=== PATIENT | female | born 1975 | race American Indian/Alaskan Native ===

== ENCOUNTER 2017-07-26 19:39 | Emergency (ER) | payer OTHER ==
[2017-07-27 03:57] LABS: Bilirubin,Urine NEG (Negative); Blood,Urine MOD (Negative); Ketones,Urine NEG (Negative); Leukocyte Esterase,Urine SM (Negative); Mucus,Urine 3+ /HPF; Nitrite,Urine NEG (Negative); Protein,Urine <15 mg/dL mg/dL (Negative); Urobilinogen,Urine < 2.0 mg/dL (<2.0)
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
[2017-07-27 06:01] VITALS: BP 111/68
[2017-07-27] MEDS ORDERED: TORADOL IM ONE (07:15)
[2017-07-27] MEDS ORDERED: TYLENOL PO ONE (07:15)
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
[2017-07-27] MEDS ORDERED: TORADOL ONE (07:17)
== END 2017-07-27 07:51 | disposition home or self-care (01) ==
LOC: ED 19:39
DX: S09.90XA Unspecified injury of head, initial encounter (principal); S19.9XXA Unspecified injury of neck, initial encounter; V89.2XXA Person injured in unspecified motor-vehicle accident, traffic, initial encounter; Y93.89 Activity, other specified; Y99.8 Other external cause status; Y92.488 Other paved roadways as the place of occurrence of the external cause
CPT/HCPCS: 70450; 81001; 81025; 93005; 93010; 96372; 99284; J1885